=== PATIENT | male | born 1960 | race Caucasian/White ===

== ENCOUNTER 2021-12-11 06:44 | Emergency (ER) | payer OTHER, SELFPAY ==
[2021-12-11 06:50] VITALS: BP 145/95; PULSE 78; RESP 18; TEMP 36.4; O2SAT 100
--- NOTE | 2021-12-11 06:59 | ED.SKABFB ---
HPI - Skin/Abscess/Foreign Bdy General Chief complaint: Skin/Abscess/Foreign Body Stated complaint: Wasp sting Time Seen by Provider: 12/11/21 06:58 History of Present Illness HPI narrative: The patient is a 61-year-old male presenting to the emergency department for evaluation of right lower eyelid swelling that occurred in the setting of a wasp sting yesterday around 6 PM. Patient stated has been about 12 hours since he was stung by a wasp. Patient did see the wasp, states that it climbed underneath his glasses and stung him. Patient denies any eye pain or vision changes. He denies any redness of the conjunctive a or discharge from the eye. Patient states he awakened this morning with a significant amount of lower eyelid swelling. Denies any blistering, bruising, bleeding. Patient denies any other rash sites or envenomations. No significant itching. Patient has not taken any medication to help with his symptoms. He denies any cough, shortness of breath, vomiting, other rashes. Related Data Allergies Allergy/AdvReac Type Severity Reaction Status Date / Time Penicillins Allergy Unknown Verified 12/11/21 06:49 Review of Systems Review of Systems: CONSTITUTIONAL: Denies fever HEENT: Right lower eyelid swelling, denies eye pain or discharge CARDIOVASCULAR: Denies chest pain RESPIRATORY: Denies cough or dyspnea. GASTROINTESTINAL: Denies abdominal pain SKIN: Denies rash MUSCULOSKELETAL: Denies back pain NEUROLOGIC: Denies headache [facility] Social History Social History (Updated 12/11/21 @ 07:21 by Radha Johnson MD) Smoking status: Never smoker Alcohol intake: never Substance use: never Gender identity (if verbalized by the patient): Male Exam Narrative: GENERAL: Awake, alert, conversant HEAD: Normocephalic, atraumatic. EYES: PERRLA and EOMI. visual acuity right eye 20/25 without corrective lenses. Patient has right lower eyelid edema without significant induration, erythema or warmth. The conjunctive are normal without injection or erythema. The pupil is normal, 2+ bilaterally and reactive. Patient with intact extraocular movements without gaze palsy. No ecchymosis. No blisters or vesicles. ENT: Nares clear, no rhinorrhea or epistaxis. Mucous membranes moist. NECK: Supple. CHEST: No respiratory distress, breathing even and non labored HEART: Regular rate, sinus rhythm ABDOMEN:Non distended, non tender EXTREMITIES: Normal range of motion. No edema. SKIN: Warm, dry, no rash. NEURO:No focal deficits. Alert and oriented x3 Course Vital Signs Vital signs: Vital Signs Temperature 36.4 C 12/11/21 06:50 Pulse Rate 78 12/11/21 06:50 Respiratory Rate 18 12/11/21 06:50 Blood Pressure 145/95 H 12/11/21 06:50 Pulse Oximetry 100 12/11/21 06:50 Oxygen Delivery Room Air 12/11/21 06:50 Temperature 36.4 C 12/11/21 06:50 Pulse Rate 78 12/11/21 06:50 Respiratory Rate 18 12/11/21 06:50 Blood Pressure 145/95 H 12/11/21 06:50 Pulse Oximetry 100 12/11/21 06:50 Oxygen Delivery Room Air 12/11/21 06:50 MDM - Skin/Abscess/Foreign Bdy MDM Narrative Medical decision making narrative: Patient presenting for evaluation of right lower eyelid swelling following a wasp envenomation approximately 13 hours prior to arrival. Patient has not been taking anything for symptom management. Patient has intact visual acuity given he presents without wearing his corrective lenses and vision is 20/25. Patient does not have any significant vesicles, erythema, ecchymosis, and there are no clinical symptoms to be concerning for periorbital cellulitis. No systemic symptoms such as fever, myalgias, or other infectious type symptoms. Patient with intact extraocular movements. No proptosis. Conjunctive are normal-appearing without sign of conjunctivitis. At this point, I feel that we can best maximize the patient's response to this envenomation with oral steroids, Benadryl and Zyrtec to help with emani
[2021-12-11 07:16] VITALS: O2SAT 96
[2021-12-11 07:17] VITALS: O2SAT 96
== END 2021-12-11 07:23 | disposition home or self-care (01) ==
PROVIDERS: Emergency Provider Emergency Medicine
DX: T63.461A Toxic effect of venom of wasps, accidental (unintentional), initial encounter (principal); H02.842 Edema of right lower eyelid
CPT/HCPCS: 99283

== ENCOUNTER 2023-12-29 15:18 | Emergency (ER) | payer SELFPAY ==
--- NOTE | ~2023-12-29 | XR_ITS ---
EXAMINATION: XR chest 2V DATE: 12/29/2023 15:58 INDICATION: Productive cough and shortness of breath TECHNIQUE: frontal and lateral views of the chest were obtained. COMPARISON: None FINDINGS: The lungs are clear with no focal airspace opacities, pulmonary edema, pleural effusion or pneumothor ax. The cardiomediastinal silhouette is normal. Mild to moderate thoracolumbar spondylosis with anter ior wedging of a few vertebral bodies at the thoracolumbar junction. IMPRESSION: 1. No acute cardiopulmonary disease. Reviewed, dictated and finalized at location A.
--- NOTE | 2023-12-29 15:32 | ED.URI ---
HPI - URI/Sore Throat General Chief Complaint: Upper Respiratory Infection Stated Complaint: Cough Time Seen by Provider: 12/29/23 15:19 Source: patient Mode of arrival: ambulatory Limitations: no limitations History of Present Illness HPI Narrative: Rj is a 63-year-old male patient presenting to the clinic today with complaints of productive cough, mild shortness breath, and left-sided rib pain. He reports that he is bringing up some yellowish brown phlegm. Denies being a smoker. Denies any URI symptoms. No fever known MD elicited complaint: cough Related Data Allergies Allergy/AdvReac Type Severity Reaction Status Date / Time Penicillins Allergy Unknown Verified 12/29/23 16:17 Review of Systems Review of Systems: Pertinent positives per HPI. Patient denies any fever, chills, rash, headache, visual changes, dizziness, chest pain, palpitations, nausea, vomiting, diarrhea, constipation, abdominal pain, or any urinary issues. PMFSH Social History Social History Smoking status: Never smoker Alcohol intake: never Substance use: never Gender identity (if verbalized by the patient): Male Comments At the time of my signature, I reviewed and agree with the nursing past medical, surgical, social, and family history. There is no relevant family history pertinent to the patient complaint. Exam Narrative: General: Well-developed, well nourished, in no apparent distress Head: Normocephalic, atraumatic Eyes: Pupils equally round and reactive to light bilaterally, EOM intact, sclera and conjunctive clear, no discharge, lids normal Ears: TMs intact and clear, ear canals clear, no drainage, grossly hearing normal. Nose: Nares patent, no discharge, no inflammation, no sinus tenderness. Mouth: Oral pharynx without lesions or masses, good dentition, MMM. Neck: Supple, trachea midline, no enlargement of anterior or posterior cervical nodes, no thyroid masses or goiter palpable. Cardio: Regular rate and rhythm, s1 and s2 normal, no murmur appreciated. Resp: Diminished breath sounds in the lower bases, no rhonchi, rales, wheezing or rubs Course Course Emergency Course: Portions of this record may have been created with voice recognition software. Level of Care: Express Care Visit Vital Signs Vital signs: Vital signs reviewed MDM - URI/Sore Throat MDM Narrative Medical decision making narrative: At the time of visit patient is resting comfortably on the exam table. Patient appears to be nontoxic. Labs: COVID testing was negative in the clinic today. Diagnostics: Chest x-ray was performed and is negative for any sign of pneumonia Plan: I suspect patient has acute cough/bronchitis. Prescription for albuterol inhaler and Tessalon Perles was sent to the pharmacy. Supportive measures were discussed with the patient and they voiced understanding discharge instructions and agrees to treatment plan. Return precautions reviewed Differential Diagnosis Differential diagnosis: Likely upper respiratory infection, otitis media, sinusitis, viral infection, bronchitis, influenza, pharyngitis and other (COVID) Imaging Data Radiologist's impression: ITS Impressions Chest X-Ray 12/29/23 16:06 IMPRESSION: 1. No acute cardiopulmonary disease. Discharge Plan Discharge Clinical Impression: Acute cough, Bronchitis Patient Disposition: Home, Self-Care Condition: Stable Instructions: Antibiotic Form, Acute Bronchitis (ED), Acute Cough (ED) Additional Instructions: Chest x-rays negative for any sign of pneumonia. COVID testing is negative in the clinic today Take prescription medications only as prescribed-albuterol inhaler, prednisone, and Tessalon Perles Increase fluids and stay well hydrated Tylenol/motrin for pain/fever Flonase and OTC antihistamines as directed Vicks vapor rub to open sinuses Sinus rins
[2023-12-29 15:35] VITALS: BP 113/84; PULSE 104; RESP 16; TEMP 37.2; O2SAT 99
== END 2023-12-29 16:34 | disposition home or self-care (01) ==
PROVIDERS: Emergency Provider Nurse Practitioner Family
DX: R05.1 Acute cough (principal); J40 Bronchitis, not specified as acute or chronic; Z20.822 Contact with and (suspected) exposure to COVID-19
CPT/HCPCS: 71046; 87426; 99213; G0463

== ENCOUNTER 2024-01-04 14:33 | Emergency (ER) | payer MEDICARE, SELFPAY ==
--- NOTE | 2024-01-04 14:41 | ED.GENADULT ---
HPI - General Adult General Chief complaint: Upper Respiratory Infection Stated complaint: COUGH/CAN'T SLEEP Time Seen by Provider: 01/04/24 14:41 Source: patient Mode of arrival: ambulatory Limitations: no limitations History of Present Illness HPI narrative: 63-year-old male patient presents to the [facility] with complaints of ongoing cough. [facility] was given steroids, Tessalon Perles and an inhaler for bronchitis. Patient states no fevers, body aches or chills. Patient states he coughs intermittently throughout the day but it is worse when he lays down at night. Patient states he cannot lie flat. Patient states his most bothersome since it is his coughing and the fact that he is not able to sleep at night. Patient denies taking any [id number] antihistamines. Denies any chest pain except for when he coughs. Denies any abdominal pain, nausea, vomiting or diarrhea. Related Data Home Medications Medication Instructions Recorded Confirmed bempedoic acid 180 mg tablet 180 mg PO DAILY 01/04/24 01/04/24 (Nexletol) esomeprazole magnesium 40 mg 40 mg PO DAILY 01/04/24 01/04/24 capsule,delayed release (Nexium) levothyroxine 50 mcg tablet 50 mcg PO DAILY 01/04/24 01/04/24 metoprolol succinate 25 mg 25 mg PO DAILY 01/04/24 01/04/24 tablet,extended release 24 hr rivaroxaban 20 mg tablet (Xarelto) 20 mg PO DAILY 01/04/24 01/04/24 Allergies Allergy/AdvReac Type Severity Reaction Status Date / Time Penicillins Allergy Unknown Verified 01/04/24 14:45 Review of Systems Review of Systems: CONSTITUTIONAL: Denies fever, chills, or sweats. EYES: Denies visual changes, redness, or discharge. ENT: Denies rhinorrhea, positive congestion, denies sore throat, or otalgia. CARDIOVASCULAR: Denies chest pain, palpitations, or edema. RESPIRATORY: Positive cough denies dyspnea. GASTROINTESTINAL: Denies abdominal pain, nausea, vomiting, or diarrhea. GENITOURINARY: Denies dysuria or hematuria. SKIN: Denies rash or itching. MUSCULOSKELETAL: Denies back pain, joint pain, or myalgia. NEUROLOGIC: Denies headache, numbness, or weakness. PSYCHIATRIC: Denies anxiety or depression. [facility] Past Medical History Medical History (Updated 01/04/24 @ 15:07 by JIMMY Collado) Adult hypothyroidism Atrial fibrillation Hyperlipidemia Surgical History Surgical History (Updated 01/04/24 @ 15:07 by JIMMY Collado) No pertinent past surgical history Social History Social History Smoking status: Never smoker Alcohol intake: never Substance use: never Gender identity (if verbalized by the patient): Male Comments At the time of my signature I agree with nursing past medical history, surgical, social, and family history. There is no relevant family history pertinent to the presenting complaint. Exam Narrative: GENERAL: Well-appearing, well-nourished, and in no acute distress. HEAD: Normocephalic, atraumatic. EYES: PERRLA and EOMI. ENT: Nares clear, no rhinorrhea or epistaxis. Mucous membranes moist. NECK: Supple. No lymphadenopathy CHEST: patient has mild inspiratory wheezing noted to bilateral upper lobes. No respiratory distress. patient able talk in clear complete sentences. No coughing noted during exam. HEART: Regular rate and rhythm. No murmur heard. Normal peripheral pulses. ABDOMEN: Soft, nontender, nondistended, normal active bowel sounds. EXTREMITIES: Normal range of motion. No edema. SKIN: Warm, dry, no rash. NEURO: No focal deficits. Alert and oriented x3. Course Course Level of Care: Express Care Visit Vital Signs Vital signs: Vital Signs Temperature 36.3 C L 01/04/24 14:44 Pulse Rate 108 H 01/04/24 14:44 Respiratory Rate 16 01/04/24 14:44 Blood Pressure 111/80 01/04/24 14:44 Pulse Oximetry 98 01/04/24 14:44 Temperature 36.3 C L 01/04/24 14:46 Pulse Rate
[2024-01-04 14:44] VITALS: BP 111/80; PULSE 108; RESP 16; TEMP 36.3; O2SAT 98
[2024-01-04 14:46] VITALS: BP 111/80; PULSE 108; RESP 16; TEMP 36.3; O2SAT 98
== END 2024-01-04 15:09 | disposition home or self-care (01) ==
PROVIDERS: Emergency Provider Nurse Practitioner Family
DX: J40 Bronchitis, not specified as acute or chronic (principal); E03.9 Hypothyroidism, unspecified; I48.91 Unspecified atrial fibrillation; E78.5 Hyperlipidemia, unspecified
CPT/HCPCS: 99213; G0463

== ENCOUNTER 2024-01-27 09:12 | Outpatient (CLI) | payer MEDICARE, SELFPAY ==
[2024-01-27 09:53] LABS: Basophils Absolute Auto 0.1 K/mm3 (0.0-0.1); Basophils Percent Auto 1.2 % (0.2-1.2); Eosinophils Absolute Auto 0.5 K/mm3 (0-0.3); Eosinophils Percent Auto 5.5 % (0-4.4); Hematocrit 49.9 % (42.0-52.0); Hemoglobin 16.5 g/dL (14.0-18.0); Immature Granulocyte Absolute 0.03 K/mm3 (0.00-0.031); Immature Granulocyte Percent A 0.4 % (0-0.5); Lymphocytes Absolute Auto 1.95 K/mm3 (0.9-3.2); Lymphocytes Percent Auto 23.4 % (18.3-44.2); Mean Corpuscular HGB Conc 33.1 g/dl (32-36); Mean Corpuscular Hemoglobin 31.1 pg (26-34); Mean Corpuscular Volume 94.2 fl (80-100); Mean Platelet Volume 10.7 fl (7.4-10.4); Monocytes Absolute Auto 0.8 K/mm3 (0.1-0.6); Monocytes Percent Auto 9.7 % (2.6-8.5); Neutrophils Percent Auto 59.8 % (45.5-73.1); Platelet Count Result 286 k/mm3 (150-375); Red Cell Distribution Width 13.1 % (11.5-14.5); White Blood Count 8.4 K/mm3 (4.5-10.0)
[2024-01-27 10:18] LABS: Alanine Aminotransferase 46 U/L (6-50); Albumin Level 4.5 g/dL (3.5-5.1); Alkaline Phosphatase 77 U/L (38-126); Anion Gap 9 mmol/L (4-12); Aspartate Amino Transferase 40 U/L (17-59); Bilirubin,Total 0.8 mg/dL (0.2-1.3); Blood Urea Nitrogen 17 mg/dL (9-20); Calcium 9.5 mg/dL (8.4-10.2); Carbon Dioxide 24 mmol/L (22-30); Chloride 106 mmol/L (98-107); Cholesterol 206 mg/dL (0-200); Creatine Kinase 128 U/L (55-170); Estimated Glomerular Filt Rate > 60; Glucose 103 mg/dL (65-110); HDL Direct 36 mg/dL; Potassium 4.6 mmol/L (3.4-5.0); Sodium 139 mmol/L (137-145); Triglycerides 112 mg/dL (<150)
[2024-01-27 10:28] LABS: LDL Cholesterol Direct 128 mg/dL
[2024-01-27 10:37] LABS: Free T4 Free Thyroxine 0.96 ng/mL (0.78-2.19)
[2024-01-27 10:48] LABS: Prostate Specific Antigen 0.5 ng/mL (< OR = 4.0)
[2024-01-27 11:11] LABS: Erythrocyte Sedimentation Rate 10 mm/hr (0-20)
[2024-01-28 14:39] LABS: CRP, High Sensitivity 0.6 mg/L
[2024-02-02 12:44] LABS: Testosterone Free 54.2 pg/mL (35.0-155.0); Testosterone Total 309 ng/dL (250-1100)
== END 2024-01-27 09:13 | disposition home or self-care (01) ==
PROVIDERS: PCP Family Medicine; Visit Provider Family Medicine
DX: Z12.5 Encounter for screening for malignant neoplasm of prostate (principal); E78.5 Hyperlipidemia, unspecified; E03.9 Hypothyroidism, unspecified; R79.89 Other specified abnormal findings of blood chemistry; M79.10 Myalgia, unspecified site; I48.91 Unspecified atrial fibrillation; R35.1 Nocturia; Z13.220 Encounter for screening for lipoid disorders
CPT/HCPCS: 36415; 80048; 80061; 80076; 82550; 82728; 84153; 84402; 84403; 84439; 84443; 85025; 85652; 86038; 86039; 86141; G0103

== ENCOUNTER 2024-03-02 15:02 | Outpatient (CLI) | payer MEDICARE, SELFPAY ==
[2024-03-04 06:43] LABS: FSH 6.8 mIU/mL (1.4-12.8); LH 3.2 mIU/mL (1.6-15.2)
== END 2024-03-02 15:03 | disposition home or self-care (01) ==
PROVIDERS: PCP Family Medicine; Visit Provider Family Medicine
DX: R79.89 Other specified abnormal findings of blood chemistry (principal)
CPT/HCPCS: 36415; 83001; 83002

== ENCOUNTER 2024-04-09 11:22 | Outpatient (CLI) | payer MEDICARE, SELFPAY ==
--- NOTE | ~2024-04-09 | XR_ITS ---
EXAMINATION: XR thoracolumbar DATE: 04/09/2024 11:37 INDICATION: Dorsalgia, unspecified. TECHNIQUE: 2 views of the thoracic lumbar spine standing on 3 radiographs were obtained. COMPARISON: Chest 2 views 12/29/2023 FINDINGS: There is 16 degrees levoscoliosis of thoracolumbar spine. There is 3 mm retrolisthesis of L 1 on L2, L2 on L3, and L3 on L4. There is mild chronic anterior wedging of T12 and L1 vertebral garret s. There is moderately decreased disc height at T10-T11. There is moderately decreased disc height at L2-L3 and mildly decreased disc height at L3-L4 and L4-L5. There is multilevel [id number] face t joint osteoarthritis in the lumbar spine. IMPRESSION: 1. Moderate thoracic and lumbar spondylosis. 2. Thoracolumbar levoscoliosis. Reviewed, dictated and finalized at location A. [facility]
== END 2024-04-09 11:23 | disposition home or self-care (01) ==
LOC: GOSHIMG 11:24
PROVIDERS: PCP Family Medicine
DX: M47.894 Other spondylosis, thoracic region (principal); M47.896 Other spondylosis, lumbar region
CPT/HCPCS: 72080

== ENCOUNTER 2024-09-24 07:58 | Outpatient (CLI) | payer MEDICARE, SELFPAY ==
[2024-09-24 08:31] LABS: Alanine Aminotransferase 44 U/L (6-50); Albumin Level 4.3 g/dL (3.5-5.1); Alkaline Phosphatase 64 U/L (38-126); Aspartate Amino Transferase 38 U/L (17-59); Bilirubin,Total 0.9 mg/dL (0.2-1.3); Cholesterol 227 mg/dL (0-200); HDL Direct 32 mg/dL; Triglycerides 194 mg/dL (<150)
[2024-09-24 08:41] LABS: LDL Cholesterol Direct 147 mg/dL
[2024-09-24 08:49] LABS: Vitamin D 25 Hydroxy 37.4 ng/mL
[2024-09-29 17:09] LABS: Testosterone Free 29 pg/mL (35.0-155.0); Testosterone Total 196 ng/dL (250-1100)
== END 2024-09-24 07:59 | disposition home or self-care (01) ==
LOC: ANHLAB 08:00
PROVIDERS: PCP Family Medicine
DX: E55.9 Vitamin D deficiency, unspecified (principal); R79.89 Other specified abnormal findings of blood chemistry; E78.00 Pure hypercholesterolemia, unspecified; Z13.220 Encounter for screening for lipoid disorders
CPT/HCPCS: 36415; 80061; 80076; 82306; 84402; 84403